=== PATIENT | male | born 1970 | race Caucasian/White ===

== ENCOUNTER 2019-03-06 07:35 | Outpatient (CLI) | payer OTHER ==
--- NOTE | 2019-03-06 09:36 | RAD ---
LUMBAR SPINE SERIES WITH FLEXION AND EXTENSION. HISTORY: Low back pain and left hip pain. COMPARISON: 02/13/2007 study. FINDINGS: Vertebral bodies are normal in height. There is marked degenerative disk narrowing at L3-4, some min imal disk narrowing at L4-5. There are degenerative facet changes seen. Some minimal retrolysis of L3 on L4 not significantly changed between the flexion and extension views. IMPRESSION: Arthritic changes of the spine. POS: C
--- NOTE | 2019-03-06 10:35 | MRI ---
LUMBAR SPINE MRI WITHOUT IV CONTRAST: HISTORY: Lumbar radiculopathy, left hip pain down to knee. FINDINGS: Incidental benign bony hemangioma within the L2 vertebral body. Minimal mixed including some type I end plate changes at L3-L4 and L4-L5. Conus medullaris region is unremarkable. Marked generalized disk desiccation changes and ligament and facet hypertrophic changes. T12-L1 disk: Unremarkable. L1-L2 disk: Unremarkable. L2-L3 disk: More prominent facet hypertrophic changes and mild lateral recess stenosis with very sli ght foraminal encroachment bilaterally. L3-L4 disk: Diffuse disk-osteophytosis more focally prominent in the left paracentral region with mo derate central canal and severe left foraminal stenosis and severe left lateral recess stenosis with moderate right foraminal stenosis. L4-L5 disk: Moderate central canal and lateral recess stenosis and bilateral foraminal stenosis. L5-S1: Focal left paracentral protrusion with central canal and left lateral recess stenosis and mod erate left foraminal stenosis. IMPRESSION: Multilevel variable severity canal, lateral recess, and foraminal stenosis as above. Mixed, includin g some type I end plate changes at L3-L4 and L4-L5. POS: [facility]
== END 2019-03-06 07:36 | disposition home or self-care (01) ==
LOC: TBSIIMAG 07:35
PROVIDERS: ATTEND Neurological Surgery
DX: M47.26 Other spondylosis with radiculopathy, lumbar region (principal); M48.061 Spinal stenosis, lumbar region without neurogenic claudication; M48.07 Spinal stenosis, lumbosacral region
CPT/HCPCS: 72100; 72148

== ENCOUNTER 2019-10-02 21:59 | Emergency (ER) | payer OTHER ==
[2019-10-02] MEDS ORDERED: Fentanyl 100 MCG/2 ML VIAL ONE (22:19)
[2019-10-02] MEDS ORDERED: Ketorolac Tromethamine 30 MG/ML VIAL ONE (22:19)
--- NOTE | 2019-10-02 22:29 | RAD ---
Left wrist 3 views HISTORY: Injury. FINDINGS: Comminuted impacted fracture of the distal radius is present with dorsal tilt and one quart er shaft width posterior displacement. No evidence of intra-articular extension. Comminution with small linear fragments posteriorly. Tiny ossific avulsion of the ulnar styloid. IMPRESSION: Impacted comminuted distal left radial fracture with dorsal tilt.
--- NOTE | 2019-10-02 22:31 | RAD ---
Left forearm 2 views HISTORY: Injury. FINDINGS: Comminuted impacted angulated fracture of the distal radius is again demonstrated, better d etailed on dedicated wrist exam. Ulnar styloid avulsion is not as well visualized. Remainder of the radius and ulna are intact.
[2019-10-02] MEDS ORDERED: Bupivacaine 0.5% 10 ML VIAL ONE (22:44)
[2019-10-02] MEDS ORDERED: Lidocaine 2% 10 ML INJ ONE (23:19)
--- NOTE | 2019-10-03 11:14 | RAD ---
Exam: XR Wrist Lt 2 View HISTORY: Post reduction of left wrist fracture. COMPARISON: 10/02/2019 at 2156 hours. FINDINGS: Splint material now overlies the wrist. Previously seen impacted fracture distal left radial metaphys is is again noted. There is improvement in alignment of the fracture fragments, but impaction of fracture fragments persists. Lucencies are seen within the pisiform bone, but this is probably artifa ctual as opposed to a fracture. Tiny avulsion fracture fragment involving the ulnar styloid process is again seen. IMPRESSION: 1. Improved alignment of fracture fragments involving the impacted distal left radial metaphyseal fra cture. There is a fracture fragment seen at the volar aspect of the distal radius. 2. Tiny avulsion fracture ulnar styloid process.
== END 2019-10-03 00:42 | disposition home or self-care (01) ==
LOC: ERS 21:59
DX: S59.202A Unspecified physeal fracture of lower end of radius, left arm, initial encounter for closed fracture (principal); S52.612A Displaced fracture of left ulna styloid process, initial encounter for closed fracture; I10 Essential (primary) hypertension; Z79.899 Other long term (current) drug therapy; W18.30XA Fall on same level, unspecified, initial encounter
CPT/HCPCS: 25605; 96374; 96375; J1885; J2001; J3010; J3490

== ENCOUNTER 2019-10-06 11:00 | Day surgery (SDC) | payer OTHER ==
[~2019-10-06 11:00] MED LIST: Dexamethasone 20 MG/5 ML VIAL ONE; Lidocaine 1% PF 5 ML VIAL ONE; Ondansetron PF 4 MG/2 ML Vial ONE; PHENYLEPHRINE-NS 100 MCG/ML 10 ML SYRINGE ONE; PROPOFOL 200 MG/20 ML VIAL ONE; Ropivacaine 0.2% HCl/PF (40 MG/20 ML VIAL) ONE; Ropivacaine 0.5% HCl/PF (150 MG/30 ML VIAL) ONE
[2019-10-06] MEDS ORDERED: Midazolam HCl 2 mg/2 ml Vial ONE (12:38)
[2019-10-06] MEDS ORDERED: Fentanyl 100 MCG/2 ML VIAL ONE ×2 (12:38→13:28)
[2019-10-06] MEDS ORDERED: Dexamethasone 20 MG/5 ML VIAL ONE (13:00)
[2019-10-06] MEDS ORDERED: Ondansetron PF 4 MG/2 ML Vial ONE (13:00)
[2019-10-06] MEDS ORDERED: PROPOFOL 0 ML ONE (13:00)
[2019-10-06] MEDS ORDERED: traMADol HCl 50 MG TAB PO PRN ×2 (13:08)
[2019-10-06] MEDS ORDERED: Zolpidem Tartrate 5 MG TAB PO PRN (13:08)
[2019-10-06] MEDS ORDERED: Ondansetron PF 4 MG/2 ML Vial IVP PRN (13:08)
[2019-10-06] MEDS ORDERED: HYDROcodone/Acetaminophen 10/325 mg Tablet PO PRN ×2 (13:08)
[2019-10-06] MEDS ORDERED: Fentanyl 100 MCG/2 ML VIAL SLOW IVP PRN (13:08)
[2019-10-06] MEDS ORDERED: Acetaminophen 325 MG TAB PO PRN (13:08)
[2019-10-06] MEDS ORDERED: Promethazine HCl 25 MG/ML VIAL IM PRN (13:08)
[2019-10-06] MEDS ORDERED: Ropivacaine 0.2% 550 ML 550 ML NERVE BLCK SCH (13:08)
[2019-10-06] MEDS ORDERED: Bupivacaine PF 0.5% 30 ML VIAL ONE (13:16)
--- NOTE | 2019-10-06 14:44 | RAD ---
Left wrist intraoperative fluoroscopy 2 views HISTORY: Wrist fracture. FINDINGS: Intraoperative fluoroscopy was provided for internal fixation as performed by . Spot fluoroscopic images show volar compression plate and multiple screws transfixing the comminuted distal radial fracture, in anatomic alignment. Tiny ulnar styloid ossific avulsion is also again demonstrated.
--- NOTE | 2019-10-06 20:50 | OP ---
DATE OF PROCEDURE: 10/06/2019 PREOPERATIVE DIAGNOSIS: Left distal radius fracture (greater than 3 fragments). POSTOPERATIVE DIAGNOSIS: Left distal radius fracture (greater than 3 fragments). PROCEDURE PERFORMED: Open reduction and internal fixation of left distal radius. ANESTHESIA: General. FISCAL AGENT: Kaylan Mckeon PA-C IMPLANTS: Synthes 2.4 mm variable angle LCP 2-column volar plate. TOURNIQUET TIME: 39 minutes at 250 mmHg. ESTIMATED BLOOD LOSS: Less than 5 mL. COMPLICATIONS: None. DRAINS: None. SPECIMEN: None. OUTCOME: Near-anatomic alignment. INDICATIONS FOR PROCEDURE: Mr. Dawson is a pleasant 49-year-old gentleman, status post ground level fall landing on his outstretched left hand. He reports immediate wrist pain. He was seen and evaluated at [facility], where x-rays demonstrated a distal radius fracture with dorsal angulation and shortening. An attempt to closed reduction was performed with improvement in alignment, but given the comminution present, the patient is felt to be at high risk for further displacement and as such, he is taken to the operating room for open reduction and internal fixation. Informed consent has been obtained and I believe all questions have been answered. DESCRIPTION OF PROCEDURE: The patient was brought to the operating room and a time-out performed followed by induction of general anesthesia. Next, a sterile prep and drape was performed of the left upper extremity. Next, an Esmarch bandage was used to exsanguinate the limb and then the tourniquet was inflated to 250 mmHg. Next, a volar radial skin incision was made after the skin was sharply incised. Dissection was carried down bluntly between the interval of the flexor carpi radialis and brachioradialis. The flexor muscle was then reflected toward the midline revealing the underlying pronator quadratus. Care was taken to identify and reflect the neurovascular bundle radially. The pronator quadratus was then sharply released off the radial border of the distal radius and reflected to the midline revealing the underlying fracture. A curette was used to remove the hematoma from the fracture gap and then the fracture reduced under direct visualization. Once reduced, a 2.4 mm variable angle LCP 2-column Synthes plate was applied to the volar cortex of the distal radius and held in place initially with a K-wire. The plate was then adjusted under C-arm guidance and then a 2.7 mm cortical screw was placed in the longitudinal limb of the plate affixing the plate to the distal radius. Next, AP and lateral C-arm images were obtained of the wrist to adjust the plate further and then a total of five locking screws were placed in the horizontal limb of the plate just proximal to the joint surface. This was then followed by additional 2.7 mm cortical screws in the longitudinal limb of the plate completing the stabilization. Final AP and lateral C-arm images were obtained that showed anatomic alignment of the fracture. The wound was then irrigated with bulb syringe and closed in layers with 0 Vicryl deep followed by 2-0 Vicryl and nylon for the skin. Xeroform gauze, Webril, and short-arm fiberglass splint was applied to the arm and then the patient was transferred to recovery room after the tourniquet was let down with total time of 39 minutes. There were no complications. He tolerated the procedure well. Job ID: [id number]
== END 2019-10-06 16:25 | disposition home or self-care (01) ==
LOC: SDC 11:00
PROVIDERS: ATTEND Orthopaedic Surgery
PROC: 0PSJ04Z Reposition Left Radius with Internal Fixation Device, Open Approach (ICD-10-PCS; principal; 2019-10-06)
DX: S52.532A Colles' fracture of left radius, initial encounter for closed fracture (principal); I10 Essential (primary) hypertension; E78.5 Hyperlipidemia, unspecified; F17.210 Nicotine dependence, cigarettes, uncomplicated; Z79.899 Other long term (current) drug therapy; Z88.2 Allergy status to sulfonamides; Z88.8 Allergy status to other drugs, medicaments and biological substances; W18.30XA Fall on same level, unspecified, initial encounter
CPT/HCPCS: 76000; A4306; C1713; J0690; J1100; J2001; J2250; J2405; J2704; J2795; J3010; S0020

== ENCOUNTER 2022-02-24 18:03 | Emergency (ER) | payer BC, OTHER ==
[2022-02-24 19:09] LABS: #Basophils 0.1 thou/uL (0.0-0.2); #Eosinphils 0.1 thou/uL (0.0-0.7); #Lymphocytes 1.3 thou/uL (1.20-3.40); #Monocytes 0.5 thou/uL (0.11-0.59); #Neutrophils 7.8 thou/uL (1.40-6.50); %Basophils 0.6 % (0.0-1.0); %Eosinophils 0.9 % (0.0-10.0); %Lymphocytes 13.3 % (21.0-51.0); %Monocytes 5.3 % (0.0-10.0); %Neutrophils 79.9 % (42.0-75.0); Hemoglobin 16.3 g/dL (14.0-18.0); Mean Corpuscular HGB CONC 33.1 g/dL (32.0-36.0); Mean Corpuscular Hemoglobin 31.1 pg (27.0-31.0); Mean Platelet Volume 8.3 fL (7.4-10.4); Platelet Count 182 thou/uL (130-400); RBC Distribution Width 12.4 % (11.5-14.5); Red Blood Cell (RBC) Count 5.24 mill/uL (4.70-6.10); White Blood Cell (WBC) Count 9.7 thou/uL (4.8-10.8)
[2022-02-24 19:26] LABS: ALT (SGPT) 31 U/L (8-55); AST (SGOT) 22 U/L (5-34); Albumin 4.6 g/dL (3.5-5.0); Alkaline Phosphatase 75 U/L (40-110); Anion Gap 15 mmol/L (10-20); BUN (Urea Nitrogen) 13 mg/dL (8.9-20.6); Bilirubin, Total 0.6 mg/dL (0.2-1.2); Calc. Creatinine Clearance 0 mL/min (70-130); Calcium 10.1 mg/dL (7.8-10.44); Carbon Dioxide 26 mmol/L (22-29); Chloride 103 mmol/L (98-107); Estimated GFR 69; Globulin 2.8 g/dL (2.4-3.5); Glucose 185 mg/dL (70-105); Lipase 12 U/L (8-78); Potassium 4.3 mmol/L (3.5-5.1); Protein, Total 7.4 g/dL (6.0-8.3); Sodium 140 mmol/L (136-145)
[2022-02-24] MEDS ORDERED: Mag-Al 1200 mg/1200 mg/30 ML UDCUP ONE (19:52)
[2022-02-24] MEDS ORDERED: Lidocaine 4% Topical Sol 50 ML BOT ONE (19:52)
[2022-02-24] MEDS ORDERED: Lidocaine Viscous Sol 2% 15 ml UD Cup ONE (19:53)
[2022-02-24] MEDS ORDERED: Hydrochlorothiazide 25 MG TAB PO SCH (20:00)
[2022-02-24] MEDS ORDERED: Amlodipine 10 MG TAB PO SCH (20:00)
[2022-02-24] MEDS ORDERED: Amlodipine 5 MG TAB ONE (20:32)
== END 2022-02-24 23:11 | disposition home or self-care (01) ==
LOC: ERS 18:03
DX: R10.13 Epigastric pain (principal); I10 Essential (primary) hypertension; K21.9 Gastro-esophageal reflux disease without esophagitis; F17.210 Nicotine dependence, cigarettes, uncomplicated; Z79.899 Other long term (current) drug therapy
CPT/HCPCS: 36415; 71045; 80053; 83690; 84484; 85025; 93005